=== PATIENT | male | born 1935 | race Caucasian/White ===

== ENCOUNTER 2016-11-12 18:45 | Inpatient (IN) | payer MEDICARE, BC ==
[~2016-11-12] VITALS: Ht 172.7 cm; Wt 78.0 kg
[~2016-11-12 18:45] MED LIST: ASPI1TAB69 PO; ATELTAB PO; ESOM1CAP16 PO; LEXA20TA PO; MOEX15TA PO; TOPR25TA PO
[2016-11-12 19:06] VITALS: BP 171/85; PULSE 61; RESP 18; TEMP 98.1; O2SAT 98
[2016-11-12] MEDS ORDERED: MORPHINE SULFATE 4 MG/ML INJ IV PUSH ONE (19:15)
[2016-11-12] MEDS ORDERED: ONDANSETRON HCL 4 MG/2 ML VIAL IVP ONE (19:15)
--- NOTE | 2016-11-12 19:29 | PD ---
HPI Chief Complaint: Fall Time Seen by Provider: 18:52 Travel History International Travel<30 days: No Contact w/Intl Traveler<30days: No Traveled to known affect area: No History of Present Illness HPI 81-year-old male that presents to the ED for evaluation of fall from a horse. Patient reports that he was riding his horse today and he fell onto his left side. Patient did suffer head injury with history of he lost consciousness. Patient was by himself and he was able to get himself up and get back into the floor so he can get to an area where he called Marvin 1. Per patient he was able to ambulate but he has severe pain. He does have a history of pelvic fractures and states that he is somewhat feels similar. He does not appear to have any shortening of the left hip. Patient denies taking any blood thinners. No chest pain or abdominal pain. No urinary or bowel movement issues. No numbness, tilling, weakness. Per patient his pain currently is 4 out of 10 but he was given 4 mg of morphine. This does feel nauseous and this started after getting the morphine. Last ate lunch. Patient follows with Dr. Kay for orthopedic surgery. [facility] Past Medical History Anxiety: No Depression: Yes Cancer: No Cardiovascular Problems: Yes (cad) Chemotherapy: No Diabetes: No Endocrine: No Genitourinary: Yes (hx of prostate surgery hx of PENILE IMPLANT) Hepatitis: No Hiatal Hernia: No Immune Disorder: No Musculoskeletal: Yes (Arthritis) Neurologic: Yes (right leg experiences some tingling and numbness) Psychiatric: Yes (depression) Reproductive: No Respiratory: Yes (hx of pneumonia) Radiation Therapy: No Sickle Cell Disease: No Thyroid Disease: No Past Surgical History Abdominal Surgery: Yes (lap margaux) AICD: Yes Arteriovenous Shunt: No Cardiac Surgery: Yes (quadruple by pass) Eye Surgery: Yes (cataract removal both eyes) Genitourinary Surgery: Yes (prostate surgery) Insulin Pump: No Joint Replacement: Yes (right knee replaced) Oral Surgery: Yes (t and a) Pacemaker: No Thoracic Surgery: Yes (left lung puncture repair) Social History Tobacco Use: No Substance Use: No Allergies-Medications (Allergen,Severity, Reaction): Coded Allergies: doxycycline (Unverified Allergy, Severe, 11/12/16) tingling throughout the body minocycline (Unverified Allergy, Severe, 11/12/16) tingling throughout the body tigecycline (Unverified Allergy, Severe, 11/12/16) tingling throughout the body Reported Meds & Prescriptions Reported Meds & Active Scripts Active Reported Aspirin Low Dose (Aspirin) 81 Mg Chew 81 Mg CHEW DAILY Esomeprazole DR 40 Mg Capdr 40 Mg PO DAILY Atelvia (Risedronate) 35 Mg Tabdr 35 Mg PO Q7D Lexapro (Escitalopram Oxalate) 20 Mg Tab 20 Mg PO DAILY Toprol XL (Metoprolol Succinate) 25 Mg Tab 25 Mg PO BID Moexipril (Moexipril HCl) 15 Mg Tab 15 Mg PO DAILY Review of Systems Except as stated in HPI: all other systems reviewed are Neg Physical Exam Narrative GENERAL: SKIN: Warm and dry. Patient has a bruise to the back of the head. HEAD: Atraumatic. Normocephalic. EYES: Pupils equal and round. No scleral icterus. No injection or drainage. ENT: No nasal bleeding or discharge. Mucous membranes pink and moist. Tongue is midline. No uvula deviation. NECK: Trachea midline. No JVD. CARDIOVASCULAR: Regular rate and rhythm. No murmurs, S3, S4. RESPIRATORY: No accessory muscle use. Clear to auscultation. Breath sounds equal bilaterally. GASTROINTESTINAL: Abdomen soft, non-tender, nondistended. Hepatic and splenic margins not palpable. MUSCULOSKELETAL: Extremities without clubbing, cyanosis, or edema. No obvious deformities. Full range of motion of the upper and lower extremities bilaterally. 2+ pulses bilaterally. Severe pain with any range of motion of the left hip but able to move it. No lumbar, thoracic, cervical spine tenderness to palpation. Sensation intact. NEUROLOGICAL: Awake and alert. No obvious cranial nerve deficits. Motor grossly within normal limits. Five out of 5 muscle strength in the arms and legs. Normal speech. PSYCHIATRIC: Appropriate mood and affect; insight and judgment normal. Data Data Last Documented VS Vital Signs Date Time Temp Pulse Resp B/P (MAP) Pulse Ox O2 Delivery O2 Flow Rate FiO2 11/12/16 20:45 59 18 188/88 (121) 100 11/12/16 19:06 98.1 Orders Orders Complete Blood Count With Diff (11/12/16 18:57) Basic Metabolic Panel (Bmp) (11/12/16 18:57) Prothrombin Time / Inr (Pt) (11/12/16 18:57) Act Partial Throm Time (Ptt) (11/12/16 18:57) Ct Brain W/O Iv Contrast(Rout) (11/12/16 18:57) Iv Access Insert/Monitor (11/12/16 18:57) Hip, Uni(Ap&Lat) W Ap Pelvis (11/12/16 18:57) Ice/Cold Pack (11/12/16 18:57) Ct Cerv Spine W/O Contrast (11/12/16 18:57) Morphine Inj (Morphine Inj) (11/12/16 19:15) Ondansetron Inj (Zofran Inj) (11/12/16 19:15) Chest, Single Ap (11/12/16 ) Ct Hip W/O Contrast (11/12/16 ) Ondansetron Inj (Zofran Inj) (11/12/16 20:00) Ct Abd/Pel W Iv Contrast(Rout) (11/12/16 20:11) Iv Access Insert/Monitor (11/12/16 20:11) Ecg Monitoring (11/12/16 20:11) Oximetry (11/12/16 20:11) Sodium Chloride 0.9% Flush (Ns Flush) (11/12/16 20:15) Iohexol 350 Inj (Omnipaque 350 Inj) (11/12/16 21:32) Admit Order (Ed Use Only) (11/12/16 22:26) Vital Signs (Adult) AMRIT.Q4H (11/12/16 22:28) Sodium Chloride 0.9% Flush (Ns Flush) (11/12/16 22:30) Sodium Chloride 0.9% Flush (Ns Flush) (11/13/16 09:00) Labs Laboratory Tests Test 11/12/16 19:45 White Blood Count 11.6 TH/MM3 Red Blood Count 4.84 MIL/MM3 Hemoglobin 14.5 GM/DL Hematocrit 43.4 % Mean Corpuscular Volume 89.6 FL Mean Corpuscular Hemoglobin 29.9 PG Mean Corpuscular Hemoglobin Concent 33.4 % Red Cell Distribution Width 14.6 % Platelet Count 128 TH/MM3 Mean Platelet Volume 11.2 FL Neutrophils (%) (Auto) 80.2 % Lymphocytes (%) (Auto) 8.3 % Monocytes (%) (Auto) 10.5 % Eosinophils (%) (Auto) 0.8 % Basophils (%) (Auto) 0.2 % Neutrophils # (Auto) 9.3 TH/MM3 Lymphocytes # (Auto) 1.0 TH/MM3 Monocytes # (Auto) 1.2 TH/MM3 Eosinophils # (Auto) 0.1 TH/MM3 Basophils # (Auto) 0.0 TH/MM3 CBC Comment DIFF FINAL Differential Comment Prothrombin Time 11.2 SEC Prothromb Time International Ratio 1.0 RATIO Activated Partial Thromboplast Time 24.0 SEC Blood Urea Nitrogen 23 MG/DL Creatinine 0.88 MG/DL Random Glucose 114 MG/DL Calcium Level 8.8 MG/DL Sodium Level 140 MEQ/L Potassium Level 4.0 MEQ/L Chloride Level 105 MEQ/L Carbon Dioxide Level 27.5 MEQ/L Anion Gap 8 MEQ/L Estimat Glomerular Filtration Rate 83 ML/MIN MDM Medical Decision Making Medical Screen Exam Complete: Yes Emergency Medical Condition: Yes Medical Record Reviewed: Yes Interpretation(s) Last Impressions Abdomen/Pelvis CT 11/12/162010 Signed Impressions: Service Date/Time: Saturday, November 12, 2016 21:03 - CONCLUSION: 1. Atherosclerosis. 2. Fat-containing umbilical hernia and a right diaphragmatic hernia. 3. Acute sacral fracture, and remote lumbar spine transverse process fractures and rib fractures. Bjorn Kim MD Hip and Pelvis X-Ray 11/12/161856 Signed Impressions: Service Date/Time: Saturday, November 12, 2016 19:32 - CONCLUSION: No acute disease. Bjorn Kim MD Head CT 11/12/161856 Signed Impressions: Service Date/Time: Saturday, November 12, 2016 19:13 - CONCLUSION: No acute disease. Bjorn Kim MD Cervical Spine CT 11/12/161856 Signed Impressions: Service Date/Time: Saturday, November 12, 2016 19:14 - CONCLUSION: 1. Severe degenerative changes and postsurgical changes are noted without evidence for acute fracture or listhesis. Bjorn Kim MD Lower Extremity CT 11/12/16 Signed Impressions: Service Date/Time: Saturday, November 12, 2016 21:03 - CONCLUSION: 1. Left sacral alar fracture. Bjorn Kim MD Chest X-Ray 10/7/17 0000 Signed Impressions: Service Date/Time: Saturday, November 12, 2016 20:20 - CONCLUSION: Basilar atelectasis and the possibility of right sided pneumoperitoneum is difficult to exclude. CT abdomen and pelvis recommended. Bjorn Kim MD CBC & BMP Diagram 11/12/16 19:45 Calcium Level 8.8 Differential Diagnosis Fracture versus bruise versus contusion versus head injury versus LOC versus syncope Narrative Course 81-year-old male that presents to the ED for evaluation of fall from a horse. Patient was properly examined and was found to have signs and symptoms consistent with appears to be possible fractures. X-rays were ordered. Labs and imaging showed sacral fracture. Otherwise unremarkable. Patient still of pain whenever he stands up. Recommendations for admission for further evaluation likely PT as well as possible orbital consult. Likely nonsurgical. Patient and family agree with this plan. Case was discussed with the residents who agreed to admission to their team. Diagnosis Primary Impression: Sacral fracture, closed Qualified Codes: S32.10XA - Unspecified fracture of sacrum, initial encounter for closed fracture Additional Impression: Head injury Qualified Codes: S09.90XA - Unspecified injury of head, initial encounter Admitting Information Admitting Physician Requests: Observation Bong Gaines Nov 12, 2016 19:29
--- NOTE | 2016-11-12 19:45 | RADRPT ---
EXAM DATE/TIME: 11/12/2016 19:13 [facility] COMPARISON: No previous studies available for comparison. INDICATIONS : Trauma, patient fell off horse and hit head. RADIATION DOSE: 56.35 CTDIvol (mGy) MEDICAL HISTORY : Hypertension. SURGICAL HISTORY : Fusion, cervical. ENCOUNTER: Initial ACUITY: 1 day PAIN SCALE: 3/10 LOCATION: cranial TECHNIQUE: Multiple contiguous axial images were obtained of the head. Using automated exposure control and adj ustment of the mA and/or kV according to patient size, radiation dose was kept as low as reasonably a chievable to obtain optimal diagnostic quality images. DICOM format image data is available electro nically for review and comparison. FINDINGS: There is atrophy and mild periventricular white matter disease. No hemorrhage, infarct, or mass. Vasc ular calcifications are. No fractures are seen. CONCLUSION: No acute disease. Bjorn Kim MD on November 12, 2016 at 19:43 Board Certified Radiologist. This report was verified electronically.
--- NOTE | 2016-11-12 19:48 | RADRPT ---
EXAM DATE/TIME: 11/12/2016 19:14 [facility] COMPARISON: No previous studies available for comparison. INDICATIONS : Trauma, patient fell off horse and hit head. RADIATION DOSE: 37.84 CTDIvol (mGy) MEDICAL HISTORY : Hypertension. SURGICAL HISTORY : Fusion, cervical. ENCOUNTER: Initial ACUITY: 1 day PAIN SCALE: 0/10 LOCATION: neck TECHNIQUE: Volumetric scanning of the cervical spine was performed. Multiplanar reconstructions in the sagittal, coronal and oblique axial planes were performed. Using automated exposure control and adjustment o f the mA and/or kV according to patient size, radiation dose was kept as low as reasonably achievable to obtain optimal diagnostic quality images. DICOM format image data is available electronically f or review and comparison. FINDINGS: The patient has had previous anterior cervical discectomy and intervertebral fusion at C5-C7. There i s severe multilevel degenerative disc disease and osteophytosis. Multilevel facet hypertrophic change s are noted. There are no compression deformities. Prevertebral soft tissues are unremarkable. There is a well-corticated ossicle inferior to the anterior arch of C1. Bilateral carotid artery calcificat ions are noted. There is severe canal stenosis at C3-4, moderate to severe stenosis at C4-5, moderate stenosis at C5-6, severe stenosis at C6-7. CONCLUSION: 1. Severe degenerative changes and postsurgical changes are noted without evidence for acute fracture or listhesis. Bjorn Kim MD on November 12, 2016 at 19:43 Board Certified Radiologist. This report was verified electronically.
--- NOTE | 2016-11-12 19:53 | RADRPT ---
EXAM DATE/TIME: 11/12/2016 19:32 [facility] COMPARISON: No previous studies available for comparison. INDICATIONS : Fell off horse today. MEDICAL HISTORY : None. SURGICAL HISTORY : L4 L5 herniated disc repair. ENCOUNTER: Initial ACUITY: 1 day PAIN SCORE: 3/10 LOCATION: Left hip FINDINGS: Bone density is decreased. Penile implantation hardware overlies the scrotum. Femoral artery and jonas c artery calcifications are noted. The left hip joint is unremarkable. No obvious fractures. CONCLUSION: No acute disease. Bjorn Kim MD on November 12, 2016 at 19:51 Board Certified Radiologist. This report was verified electronically.
[2016-11-12] MEDS ORDERED: ONDANSETRON HCL 4 MG/2 ML VIAL IV PUSH ONE (20:00)
[2016-11-12] MEDS ORDERED: ASPI81CH37 CHEW (20:12)
[2016-11-12] MEDS ORDERED: SODIUM CHLORIDE 0.9% FLUSH 10 ML FLUSH IV FLUSH PRN ×2 (20:15→22:30)
[2016-11-12 20:23] LABS: AUTOMATED NEUTROPHIL # 9.3 TH/MM3 (1.8-7.7); BASOPHIL % 0.2 % (0.0-2.0); EOSINOPHIL # 0.1 TH/MM3 (0-0.4); EOSINOPHIL % 0.8 % (0.0-4.0); HEMATOCRIT 43.4 % (39.0-51.0); HEMO FLAGS DIFF FINAL; LYMPH % 8.3 % (9.0-44.0); MEAN CELL VOLUME 89.6 FL (80.0-100.0); MEAN CORPUSCULAR HEMOGLOBIN 29.9 PG (27.0-34.0); MEAN CORPUSCULAR HGB CONC 33.4 % (32.0-36.0); MONO % 10.5 % (0.0-8.0); NEUT % 80.2 % (16.0-70.0); PLATELET COUNT 128 TH/MM3 (150-450); RED BLOOD COUNT 4.84 MIL/MM3 (4.50-5.90); RED CELL DISTRIBUTION WIDTH 14.6 % (11.6-17.2); WHITE BLOOD COUNT 11.6 TH/MM3 (4.0-11.0)
--- NOTE | 2016-11-12 20:28 | RADRPT ---
EXAM DATE/TIME: 11/12/2016 20:20 [facility] COMPARISON: No previous studies available for comparison. INDICATIONS : Chest pain. MEDICAL HISTORY : Hypertension. SURGICAL HISTORY : CABG. L4 L5 herniated disc repair ENCOUNTER: Initial ACUITY: 1 day PAIN SCORE: 9/10 LOCATION: Bilateral chest FINDINGS: Median sternotomy wires and cardiomegaly. Mediastinal clips are noted. There are multiple left sided rib deformities having the appearance of remote fractures. There is atelectasis at the right lung bas e. There is a lucency at the level of the right hemidiaphragm. This may be related to artifact from t he basilar atelectasis, however the possibility of pneumoperitoneum is difficult to exclude. A CT sca n of the abdomen and pelvis is pending. This is recommended to exclude free air. CONCLUSION: Basilar atelectasis and the possibility of right sided pneumoperitoneum is difficult to exclude. CT a bdomen and pelvis recommended. Bjorn Kim MD on November 12, 2016 at 20:26 Board Certified Radiologist. This report was verified electronically.
[2016-11-12 20:34] LABS: PROTHROMBIN TIME - PATIENT 11.2 SEC (9.8-11.6)
[2016-11-12 20:39] LABS: BICARBONATE 27.5 MEQ/L (21.0-32.0)
[2016-11-12 20:45] VITALS: BP 188/88; PULSE 59; RESP 18; O2SAT 100
[2016-11-12] MEDS ORDERED: IOHEXOL 350 MG/ML 10 ML VIAL (for RAD DIAG) IVCONTRAST ONE (21:32)
--- NOTE | 2016-11-12 21:42 | RADRPT ---
EXAM DATE/TIME: 11/12/2016 21:03 [facility] COMPARISON: No previous studies available for comparison. INDICATIONS : Epigastric abdominal pain and vomiting post fall. IV CONTRAST: 100 cc Omnipaque 350 (iohexol) IV ORAL CONTRAST: No oral contrast ingested. RADIATION DOSE: 7.24 CTDIvol (mGy) MEDICAL HISTORY : Hypertension. Cardiovascular disease SURGICAL HISTORY : Cholecystectomy. Penile implant. Prostate surgery. CABG. L4-L5 surgery. ENCOUNTER: Initial ACUITY: 1 day PAIN SCALE: 6/10 LOCATION: Epigastric. TECHNIQUE: Volumetric scanning of the abdomen and pelvis was performed. Using automated exposure control and ad justment of the mA and/or kV according to patient size, radiation dose was kept as low as reasonably achievable to obtain optimal diagnostic quality images. DICOM format image data is available electro nically for review and comparison. FINDINGS: There is a small fat containing diaphragmatic hernia at the right lung base, and basilar atelectasis versus scarring. There are remote left-sided rib fractures and a subacute fracture of the right 10th posterior rib. Degenerative changes of the spine are seen. Remote right 11th posterior rib fracture, and remote L1 transverse process fractures and right L2 transverse process fracture. The patient has had previous posterior interspinous process fusion at L4-5. There is a fracture through the sacrum at the S1 level on the left. Penile implantation device is present. There are no pleural or pericardial effusions. Cholecystectomy clips are noted. Liver, spleen, pancreas, adrenal glands, right kidney un remarkable. There is a left renal parapelvic cyst measuring 5.2 cm. Atherosclerotic calcification of the aorta and iliac vessels identified. Urinary bladder unremarkable. No evidence of bowel obstructio n. No free fluid or free air. Fat-containing umbilical hernia. CONCLUSION: 1. Atherosclerosis. 2. Fat-containing umbilical hernia and a right diaphragmatic hernia. 3. Acute sacral fracture, and remote lumbar spine transverse process fractures and rib fractures. Bjorn Kim MD on November 12, 2016 at 21:36 Board Certified Radiologist. This report was verified electronically.
--- NOTE | 2016-11-12 21:43 | RADRPT ---
EXAM DATE/TIME: 11/12/2016 21:03 [facility] COMPARISON: No previous studies available for comparison. INDICATIONS : Left hip pain post fall. RADIATION DOSE: ; Reconstructed from previous dataset, no dose MEDICAL HISTORY : None SURGICAL HISTORY : Prostate surgery. Penile implant. ENCOUNTER: Initial ACUITY: 1 day PAIN SCALE: 7/10 LOCATION: Left hip. TECHNIQUE: Volumetric scanning of the hip was performed. Using automated exposure control and adjustment of the mA and/or kV according to patient size, radiation dose was kept as low as reasonably achievable to o btain optimal diagnostic quality images. DICOM format image data is available electronically for rev iew and comparison. FINDINGS: There is a nondisplaced fracture through the sacrum to the left of midline at the S1 level. No other fractures are seen. Left hip intact. 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 CONCLUSION: 1. Left sacral alar fracture. Bjorn Kim MD on November 12, 2016 at 21:40 Board Certified Radiologist. This report was verified electronically.
--- NOTE | 2016-11-12 22:57 | HHI.HP ---
[facility] Service Family Medicine Primary Care Physician Francisco Tovar M.D. Admission Diagnosis acute sacral fracture, inability to ambulate due to pain Diagnoses: International Travel<30 Days: No Contact w/Intl Traveler<30days: No Known Affected Area: No History of Present Illness Patient is an 81-year-old man with a history of ROSA, HTN, quadruple bypass who presented to the emergency department with a left sacral fracture after falling off his horse. 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 His horse saw a branch, reared back and spun around and took off , and the pt fell off the horse. He doesn't remember how he fell. He hit his head. He doesn't think he lost consciousness. He got up and felt dizzy and nauseous. He sat down next to a tree in the shade, then got back on his horse and rode home. He took a shower, watched TV, then 1-2 hours later, decided to go to hospital. He tried to use walker (he normally walks without assistive device) to walk. However, he found it extremely painful to walk around his left butt/hip, medial to hip. He reports that he thought he had broken something. He currently denies headache, visual changes, neurological deficits. (Seven Bonds MD R2) Review of Systems Constitutional: DENIES: Diaphoretic episodes, Fever, Weight loss, Chills Ears, nose, mouth, throat: COMPLAINS OF: Hearing loss (chronic ) Respiratory: DENIES: Cough, Shortness of breath Cardiovascular: COMPLAINS OF: Lower Extremity Edema, DENIES: Chest pain, Palpitations, Syncope, Dyspnea on Exertion, Orthopnea Gastrointestinal: COMPLAINS OF: Abdominal pain (slight), DENIES: Black stools, Bloody stools, Constipation, Diarrhea, Nausea, Vomiting Genitourinary: DENIES: Hematuria, Dysuria Musculoskeletal: COMPLAINS OF: Joint pain (arthritis), Back pain (occasional with exercise), Neck pain (occasional with exercise) Integumentary: DENIES: Pruritus, Rash Neurologic: COMPLAINS OF: Paresthesias (with gripping), DENIES: Headache, Localized weakness Psychiatric: COMPLAINS OF: Depression, DENIES: Anxiety, Mood changes (Seven Bonds MD R2) Past Family Social History Past Medical History ROSA HTN CAD depression Patient gets shots in his back about every 6 months, so he can ski. Past Surgical History quadruple bypass back and neck surgery knee replacement Cholecystectomy prostate surgery penile implant thumb re-attached chest tube for hemothorax Reported Medications Reported Meds & Active Scripts Active Reported Aspirin Low Dose (Aspirin) 81 Mg Chew 81 Mg CHEW DAILY Esomeprazole DR 40 Mg Capdr 40 Mg PO DAILY Atelvia (Risedronate) 35 Mg Tabdr 35 Mg PO Q7D Lexapro (Escitalopram Oxalate) 20 Mg Tab 20 Mg PO DAILY Toprol XL (Metoprolol Succinate) 25 Mg Tab 25 Mg PO BID Moexipril (Moexipril HCl) 15 Mg Tab 15 Mg PO DAILY (Seven Bonds MD R2) Allergies: Coded Allergies: doxycycline (Unverified Allergy, Severe, 11/12/16) tingling throughout the body minocycline (Unverified Allergy, Severe, 11/12/16) tingling throughout the body tigecycline (Unverified Allergy, Severe, 11/12/16) tingling throughout the body Active Ordered Medications Current Medications Medications (Trade) Dose Ordered Sig/Jose Eduardo Route Start Time Stop Time Status Last Admin (NS Flush) 2 ml UNSCH PRN IV FLUSH 11/12/16 22:30 (NS Flush) 2 ml BID IV FLUSH 11/13/16 09:00 (Tylenol) 650 mg Q4H PRN PO 11/12/16 23:30 (Zofran Inj) 4 mg Q6H PRN IVP 11/12/16 23:30 (Lovenox Inj) 40 mg Q24H SQ 11/13/16 00:00 (Sylvia-Colace) 1 tab BID PO 11/13/16 09:00 (Milk Of Magnesia Liq) 30 ml Q12H PRN PO 11/12/16 23:30 (Senokot) 17.2 mg Q12H PRN PO 11/12/16 23:30 (Dulcolax Supp) 10 mg DAILY PRN RECTAL 11/12/16 23:30 (Lactulose Liq) 30 ml DAILY PRN PO 11/12/16 23:30 (Morphine Inj) 1 mg Q3H PRN IV PUSH 11/12/16 23:30 (Morphine Inj) 2 mg Q3H PRN IV PUSH 11/12/16 23:45 (Morphine Inj) 2 mg Q3H PRN IV PUSH 11/12/16 23:45 Acetaminophen 100 ml @ 400 mls/hr Q6H IV 11/12/16 23:30 11/13/16 17:44 (Narcan Inj) 0.4 mg UNSCH PRN IV PUSH 11/12/16 23:30 (Toradol Inj) 30 mg Q6HR IV PUSH 11/13/16 00:00 11/17/16 18:01 (Aspirin Chew) 81 mg DAILY CHEW 11/13/16 09:00 (Lexapro) 20 mg DAILY PO 11/13/16 09:00 (Toprol Xl) 25 mg BID PO 11/13/16 00:15 Non-Formulary Medication 40 mg DAILY PO 11/13/16 09:00 UNV Non-Formulary Medication 15 mg DAILY PO 11/13/16 09:00 UNV Non-Formulary Medication 35 mg Q7D PO 11/13/16 00:15 UNV Family History sister of [place] dad [place] at 87 bro combat Social History Patient lives with his in a house. They live independently with no outside help. Patient denies any tobacco, ethanol, drug use since 1984-07. No caffeine except chocolate because of a GI complaint many years ago. He skis, rides his bike, rides is horse, walks unassisted. (Seven Bonds MD R2) Physical Exam Vital Signs Vital Signs Date Time Temp Pulse Resp B/P (MAP) Pulse Ox O2 Delivery O2 Flow Rate FiO2 11/12/16 20:45 59 18 188/88 (121) 100 11/12/16 20:03 60 18 100 11/12/16 19:06 98.1 61 18 171/85 (113) 98 Physical Exam GENERAL: This is a well-nourished, well-developed elderly male patient , in no apparent distress. SKIN: + Ecchymosis and abrasion of scalp. Otherwise, Cool and dry. HEAD: + traumatic as above. Normocephalic. EYES: Arcus senilis present bilaterally. Pinpoint Pupils equal round and reactive. Extraocular motions intact. No scleral icterus. No injection or drainage. ENT: Nose without bleeding, purulent drainage or septal hematoma. Throat without erythema, tonsillar hypertrophy or exudate. Uvula midline. Airway patent. NECK: Trachea midline. No JVD or lymphadenopathy. Supple, nontender, no meningeal signs. CARDIOVASCULAR: Regular rate and rhythm without murmurs, gallops, or rubs. RESPIRATORY: Clear to auscultation. Breath sounds equal bilaterally. No wheezes , rales, or rhonchi. GASTROINTESTINAL: Abdomen soft, non-tender, nondistended. No hepato-splenomegaly , or palpable masses. No guarding. MUSCULOSKELETAL: Extremities without clubbing, cyanosis, or edema. No joint tenderness, effusion, or edema noted. No calf tenderness. NEUROLOGICAL: Awake and alert. Cranial nerves II through XII grossly intact. Motor and sensory grossly within normal limits. Normal speech. Laboratory Laboratory Tests Test 11/12/16 19:45 White Blood Count 11.6 Red Blood Count 4.84 Hemoglobin 14.5 Hematocrit 43.4 Mean Corpuscular Volume 89.6 Mean Corpuscular Hemoglobin 29.9 Mean Corpuscular Hemoglobin Concent 33.4 Red Cell Distribution Width 14.6 Platelet Count 128 Mean Platelet Volume 11.2 Neutrophils (%) (Auto) 80.2 Lymphocytes (%) (Auto) 8.3 Monocytes (%) (Auto) 10.5 Eosinophils (%) (Auto) 0.8 Basophils (%) (Auto) 0.2 Neutrophils # (Auto) 9.3 Lymphocytes # (Auto) 1.0 Monocytes # (Auto) 1.2 Eosinophils # (Auto) 0.1 Basophils # (Auto) 0.0 CBC Comment DIFF FINAL Differential Comment Prothrombin Time 11.2 Prothromb Time International Ratio 1.0 Activated Partial Thromboplast Time 24.0 Blood Urea Nitrogen 23 Creatinine 0.88 Random Glucose 114 Calcium Level 8.8 Sodium Level 140 Potassium Level 4.0 Chloride Level 105 Carbon Dioxide Level 27.5 Anion Gap 8 Estimat Glomerular Filtration Rate 83 (Seven Bonds MD R2) Result Diagram: 11/12/16194411/12/161944 Imaging Last Impressions Abdomen/Pelvis CT 11/12/162010 Signed Impressions: Service Date/Time: Saturday, November 12, 2016 21:03 - CONCLUSION: 1. Atherosclerosis. 2. Fat-containing umbilical hernia and a right diaphragmatic hernia. 3. Acute sacral fracture, and remote lumbar spine transverse process fractures and rib fractures. Bjorn Kim MD Hip and Pelvis X-Ray 11/12/161856 Signed Impressions: Service Date/Time: Saturday, November 12, 2016 19:32 - CONCLUSION: No acute disease. Bjorn Kim MD Head CT 11/12/161856 Signed Impressions: Service Date/Time: Saturday, November 12, 2016 19:13 - CONCLUSION: No acute disease. Bjorn Kim MD Cervical Spine CT 11/12/161856 Signed Impressions: Service Date/Time: Saturday, November 12, 2016 19:14 - CONCLUSION: 1. Severe degenerative changes and postsurgical changes are noted without evidence for acute fracture or listhesis. Bjorn Kim MD Lower Extremity CT 11/12/16 0000 Signed Impressions: Service Date/Time: Saturday, November 12, 2016 21:03 - CONCLUSION: 1. Left sacral alar fracture. Bjorn Kim MD Chest X-Ray 11/12/16 Signed Impressions: Service Date/Time: Saturday, November 12, 2016 20:20 - CONCLUSION: Basilar atelectasis and the possibility of right sided pneumoperitoneum is difficult to exclude. CT abdomen and pelvis recommended. Bjorn Kim MD Course In the emergency department, patient had CT cervical spine without IV contrast, ice/cold pack, hip x-ray, CT brain without IV contrast, a PTT, PT/INR, BMP, CBC , Zofran 4 mg IV push, morphine 4 mg IV push, CT hip without IV contrast, chest x-ray, Zofran, CT abdomen/pelvis with IV contrast, admission order. (Seven Bonds MD R2) Caprini VTE Risk Assessment Caprini VTE Risk Assessment: Mod/High Risk (score >= 2) Caprini Risk Assessment Model Point Value = 1 Point Value = 2 Point Value = 3 Point Value = 5 Age 41-60 Minor surgery BMI > 25 kg/m2 Swollen legs Varicose veins or History of unexplained or recurrent spontaneous Oral contraceptives or hormone replacement Sepsis (< 1 month) Serious lung disease, including pneumonia (< 1 month) Abnormal pulmonary function Acute myocardial infarction Congestive heart failure (< 1 month) History of inflammatory bowel disease Medical patient at bed rest Age 61-74 Arthroscopic surgery Major open surgery (> 45 min) Laparoscopic surgery (> 45 min) Malignancy Confined to bed (> 72 hours) Immobilizing plaster cast Central venous access Age >= 75 History of VTE Family history of VTE Factor V Leiden Prothrombin [id number] Lupus anticoagulant Anticardiolipin antibodies Elevated serum homocysteine Heparin-induced thrombocytopenia Other congenital or acquired thrombophilia Stroke (< 1 month) Elective arthroplasty Hip, pelvis, or leg fracture Acute spinal cord injury (< 1 month) Prophylaxis Regimen Total Risk Factor Score Risk Level Prophylaxis Regimen 0-1 Low Early ambulation 2 Moderate Order ONE of the following: *Sequential Compression Device (SCD) *Heparin 5000 units SQ BID 3-4 Higher Order ONE of the following medications: *Heparin 5000 units SQ TID *Enoxaparin/Lovenox 40 mg SQ daily (WT < 150 kg, CrCl > 30 mL/min) *Enoxaparin/Lovenox 30 mg SQ daily (WT < 150 kg, CrCl > 10-29 mL/min) *Enoxaparin/Lovenox 30 mg SQ BID (WT < 150 kg, CrCl > 30 mL/min) AND/OR *Sequential Compression Device (SCD) 5 or more Highest Order ONE of the following medications: *Heparin 5000 units SQ TID (Preferred with Epidurals) *Enoxaparin/Lovenox 40 mg SQ daily (WT < 150 kg, CrCl > 30 mL/min) *Enoxaparin/Lovenox 30 mg SQ daily (WT < 150 kg, CrCl > 10-29 mL/min) *Enoxaparin/Lovenox 30 mg SQ BID (WT < 150 kg, CrCl > 30 mL/min) AND *Sequential Compression Device (SCD) (Seven Bonds MD R2) Assessment and Plan Assessment and Plan Patient is an 81-year-old man with a history of ROSA, HTN, quadruple bypass who presented to the emergency department with a left sacral fracture after falling off his horse. Code Status Full code (Seven Bonds MD R2) Attending Attestation THIS CASE WAS DISCUSSED WITH THE RESIDENT PHYSICIANS. I HAVE REVIEWED THE RECORD AND AGREE WITH THE ABOVE NOTE AND PLAN OF CARE WAS DISCUSSED. I HAVE AUTHORIZED THE ORDER FOR ADMISSION TO AN IN-PATIENT STATUS. (Kimo Thornton MD) Problem List: (1) Sacral fracture, closed ICD Codes: S32.10XA - Unspecified fracture of sacrum, initial encounter for closed fracture Status: Acute Plan: -Pain control with scheduled acetaminophen, Toradol. Morphine for pain 1- 10 and breakthrough pain -Physical therapy with early mobilization -Calcium and vitamin D supplementation (2) CAD (coronary artery disease) ICD Codes: I25.10 - Atherosclerotic heart disease of [place] coronary artery without angina pectoris Plan: -Continue home medication of low-dose aspirin (3) Osteoporosis ICD Codes: M81.0 - Age-related osteoporosis without current pathological fracture Plan: -Continue home medication of bisphosphonate -Calcium and vitamin D supplementation (4) HTN (hypertension) ICD Codes: I10 - Essential (primary) hypertension Plan: -Continue medications of metoprolol and ACEi (5) GERD (gastroesophageal reflux disease) ICD Codes: K21.9 - Gastro-esophageal reflux disease without esophagitis Plan: -Continue home medication of PPI (6) ROSA (obstructive sleep apnea) ICD Codes: G47.33 - Obstructive sleep apnea (adult) (pediatric) Plan: -Continue CPAP at night while sleeping (7) Depression ICD Codes: F32.9 - Major depressive disorder, single episode, unspecified Plan: -Continue home medication of Lexapro (8) No contraindication to deep vein thrombosis (DVT) prophylaxis ICD Codes: Z78.9 - Other specified health status Plan: -Lovenox (9) Nutrition, metabolism, and development symptoms ICD Codes: R63.8 - Other symptoms and signs concerning food and fluid intake Plan: Fluids: Not indicated Electrolytes: Monitor Nutrition: Regular diet (Seven Bonds MD R2) Physician Certification 2 Midnight Certification Type: Admission for Inpatient Services Order for Inpatient Services The services are ordered in accordance with Medicare regulations or non- Medicare payer requirements, as applicable. In the case of services not specified as inpatient-only, they are appropriately provided as inpatient services in accordance with the 2-midnight benchmark. Estimated LOS (days): 2 2 days is the estimated time the patient will need to remain in the hospital, assuming treatment plan goals are met and no additional complications. Post-Hospital Plan: Not yet determined (Seven Bonds MD R2) Problem Qualifiers (1) Sacral fracture, closed: Qualified Codes: S32.10XA - Unspecified fracture of sacrum, initial encounter for closed fracture Seven Bonds MD R2 Nov 12, 2016 22:57 Kimo Thornton MD Nov 13, 2016 11:32
[2016-11-12] MEDS ORDERED: MORPHINE SULFATE 4 MG/ML INJ IV PUSH PRN ×2 (23:30→23:45)
[2016-11-12] MEDS ORDERED: SENNOSIDES 8.6 MG TAB PO PRN (23:30)
[2016-11-12] MEDS ORDERED: ACETAMINOPHEN 325 MG TAB PO PRN (23:30)
[2016-11-12] MEDS ORDERED: LACTULOSE SYRUP 20 GM/30 ML CUP PO PRN (23:30)
[2016-11-12] MEDS ORDERED: BISACODYL 10 MG SUPP RECTAL PRN (23:30)
[2016-11-12] MEDS ORDERED: NALOXONE HCL 0.4 MG/ML AMP IV PUSH PRN ×2 (23:30)
[2016-11-12] MEDS ORDERED: ONDANSETRON HCL 4 MG/2 ML VIAL IVP PRN (23:30)
[2016-11-12] MEDS ORDERED: MAGNESIUM HYDROXIDE SUSP 30 ML CUP PO PRN (23:30)
[2016-11-13] VITALS (8 sets, daily range): BP systolic 119–148; BP diastolic 57–82; PULSE 59–87; RESP 16–18; TEMP 97.1–98.4; O2SAT 95–100
[2016-11-13] MEDS: ENOXAPARIN SODIUM 40 MG/0.4 ML SYRINGE SQ SCH ×2 (00:19→23:51)
[2016-11-13] MEDS: ACETAMINOPHEN 1000 MG/100 ML 100 ML IV SCH ×3 (00:19→11:19)
[2016-11-13] MEDS: METOPROLOL SUCCINATE 25 MG EXTENDED RELEASE TAB PO SCH ×3 (01:52→22:30)
[2016-11-13] MEDS: CALCIUM/VITAMIN D 250 MG/125 U TAB PO SCH ×3 (01:52→22:30)
[2016-11-13] MEDS: MORPHINE SULFATE 4 MG/ML INJ IV PUSH PRN ×2 (02:05→06:05)
[2016-11-13] MEDS: KETOROLAC TROMETHAMINE 30 MG/ML (IVP) VIAL IV PUSH SCH ×2 (05:57)
[2016-11-13 07:49] LABS: AUTOMATED NEUTROPHIL # 4.7 TH/MM3 (1.8-7.7); BASOPHIL % 0.5 % (0.0-2.0); EOSINOPHIL # 0.2 TH/MM3 (0-0.4); EOSINOPHIL % 2.8 % (0.0-4.0); HEMATOCRIT 39.3 % (39.0-51.0); HEMO FLAGS DIFF FINAL; LYMPH % 19.5 % (9.0-44.0); LYMPHOCYTE # 1.5 TH/MM3 (1.0-4.8); MEAN CELL VOLUME 89.6 FL (80.0-100.0); MEAN CORPUSCULAR HEMOGLOBIN 30.2 PG (27.0-34.0); MEAN CORPUSCULAR HGB CONC 33.7 % (32.0-36.0); NEUT % 60.2 % (16.0-70.0); PLATELET COUNT 112 TH/MM3 (150-450); RED BLOOD COUNT 4.38 MIL/MM3 (4.50-5.90); RED CELL DISTRIBUTION WIDTH 14.9 % (11.6-17.2); WHITE BLOOD COUNT 7.8 TH/MM3 (4.0-11.0)
[2016-11-13 08:12] LABS: ANION GAP 6 MEQ/L (5-15); AST (GOT) 97 U/L (15-37); BICARBONATE 28.6 MEQ/L (21.0-32.0); BLOOD UREA NITROGEN 28 MG/DL (7-18); CHLORIDE 105 MEQ/L (98-107); GLOMERULAR FILTRATION RATE 69 ML/MIN (>89); POTASSIUM 3.6 MEQ/L (3.5-5.1); SODIUM (NA) 140 MEQ/L (136-145)
[2016-11-13 08:13] LABS: ALT (GPT) 92 U/L (12-78)
[2016-11-13 08:16] LABS: ALKALINE PHOSPHATASE 86 U/L (45-117); TOTAL BILIRUBIN ADULT 1.7 MG/DL (0.2-1.0)
[2016-11-13] MEDS ORDERED: ACETAMINOPHEN/HYDROcodone 325 MG/5 MG TAB PO PRN (09:30)
[2016-11-13] MEDS: ESCITALOPRAM OXALATE 20 MG TAB PO SCH (09:36)
[2016-11-13] MEDS: ASPIRIN 81 MG CHEW TAB CHEW SCH (09:37)
[2016-11-13] MEDS: DOCUSATE SODIUM 50 MG/SENNA 8.6 MG TAB PO SCH ×2 (09:37→22:30)
[2016-11-13] MEDS: PANTOPRAZOLE SOD 40 MG DELAYED RELEASE TAB PO SCH (09:37)
[2016-11-13] MEDS: LISINOPRIL 20 MG TAB PO SCH (09:38)
[2016-11-13] MEDS: SODIUM CHLORIDE 0.9% FLUSH 10 ML FLUSH IV FLUSH SCH ×2 (09:40→22:31)
[2016-11-13] MEDS: ACETAMINOPHEN/HYDROcodone 325 MG/10 MG TAB PO PRN ×3 (11:19→22:31)
--- NOTE | 2016-11-13 11:32 | HHI.HP ---
[facility] Service Family Medicine Primary Care Physician Francisco Tovar M.D. Admission Diagnosis acute sacral fracture, inability to ambulate due to pain Diagnoses: (1) Sacral fracture, closed (2) CAD (coronary artery disease) (3) Osteoporosis (4) HTN (hypertension) (5) GERD (gastroesophageal reflux disease) (6) ROSA (obstructive sleep apnea) (7) Depression (8) No contraindication to deep vein thrombosis (DVT) prophylaxis (9) Nutrition, metabolism, and development symptoms International Travel<30 Days: No Contact w/Intl Traveler<30days: No Known Affected Area: No History of Present Illness No acute events overnight and patient feels relatively well this morning. He has walker next to the bed but has not been out of bed without assistance. He denies any pain at this time will sitting in bed, he did receive pain medication this morning around 6 AM and states that it decreased his overall pain to 0.5 out of 10. He denies any back pain, denies any hip pain, denies any leg pain at this time. He is tolerating breakfast without issues and would like to go home today. In summary, this is an 81-year-old man with a history of ROSA, HTN, quadruple bypass who presented to the emergency department with a left sacral fracture after falling off his horse. 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 His horse saw a branch, reared back and spun around and took off, and the pt fell off the horse. He doesn't remember how he fell. He hit his head. He doesn't think he lost consciousness. He got up and felt dizzy and nauseous. He sat down next to a tree in the shade, then got back on his horse and rode home. He took a shower, watched TV, then 1-2 hours later, decided to go to hospital. He tried to use walker (he normally walks without assistive device) to walk. However, he found it extremely painful to walk around his left butt/hip, medial to hip. Past Family Social History Past Medical History ROSA HTN CAD depression Patient gets shots in his back about every 6 months, so he can ski. Past Surgical History quadruple bypass back and neck surgery knee replacement Cholecystectomy prostate surgery penile implant thumb re-attached chest tube for hemothorax Allergies: Coded Allergies: doxycycline (Unverified Allergy, Severe, 11/12/16) tingling throughout the body minocycline (Unverified Allergy, Severe, 11/12/16) tingling throughout the body tigecycline (Unverified Allergy, Severe, 11/12/16) tingling throughout the body Family History sister of [place] dad [place] at 87 bro combat Social History Patient lives with his in a house. They live independently with no outside help. Patient denies any tobacco, ethanol, drug use since 1984-07. No caffeine except chocolate because of a GI complaint many years ago. He skis, rides his bike, rides is horse, walks unassisted. Physical Exam Vital Signs Vital Signs Date Time Temp Pulse Resp B/P (MAP) Pulse Ox O2 Delivery O2 Flow Rate FiO2 11/13/16 07:48 97.6 62 16 120/57 (78) 97 11/13/16 04:00 97.1 61 18 121/77 (92) 98 11/13/16 01:44 97.6 87 18 148/79 (102) 97 11/13/16 00:49 95 Nasal Cannula 2.00 11/13/16 00:19 96 Nasal Cannula 2.00 11/13/16 00:19 98.0 63 18 140/82 (101) 100 Room Air 11/12/16 20:45 59 18 188/88 (121) 100 11/12/16 20:03 60 18 100 11/12/16 19:06 98.1 61 18 171/85 (113) 98 Physical Exam GENERAL: This is a well-nourished, well-developed elderly male patient , in no apparent distress. SKIN: + Ecchymosis and abrasion of scalp. Otherwise, Cool and dry. CARDIOVASCULAR: Regular rate and rhythm without murmurs, gallops, or rubs. RESPIRATORY: Clear to auscultation. Breath sounds equal bilaterally. No wheezes , rales, or rhonchi. MUSCULOSKELETAL: Extremities without clubbing, cyanosis, or edema. NEUROLOGICAL: Awake and alert. Laboratory Laboratory Tests Test 11/12/16 19:45 11/13/16 06:35 White Blood Count 11.6 7.8 Red Blood Count 4.84 4.38 Hemoglobin 14.5 13.2 Hematocrit 43.4 39.3 Mean Corpuscular Volume 89.6 89.6 Mean Corpuscular Hemoglobin 29.9 30.2 Mean Corpuscular Hemoglobin Concent 33.4 33.7 Red Cell Distribution Width 14.6 14.9 Platelet Count 128 112 Mean Platelet Volume 11.2 11.5 Neutrophils (%) (Auto) 80.2 60.2 Lymphocytes (%) (Auto) 8.3 19.5 Monocytes (%) (Auto) 10.5 17.0 Eosinophils (%) (Auto) 0.8 2.8 Basophils (%) (Auto) 0.2 0.5 Neutrophils # (Auto) 9.3 4.7 Lymphocytes # (Auto) 1.0 1.5 Monocytes # (Auto) 1.2 1.3 Eosinophils # (Auto) 0.1 0.2 Basophils # (Auto) 0.0 0.0 CBC Comment DIFF FINAL DIFF FINAL Differential Comment Prothrombin Time 11.2 Prothromb Time International Ratio 1.0 Activated Partial Thromboplast Time 24.0 Blood Urea Nitrogen 23 28 Creatinine 0.88 1.03 Random Glucose 114 96 Calcium Level 8.8 8.4 Sodium Level 140 140 Potassium Level 4.0 3.6 Chloride Level 105 105 Carbon Dioxide Level 27.5 28.6 Anion Gap 8 6 Estimat Glomerular Filtration Rate 83 69 Total Protein 5.2 Albumin 3.3 Alkaline Phosphatase 86 Aspartate Amino Transf (AST/SGOT) 97 Alanine Aminotransferase (ALT/SGPT) 92 Total Bilirubin 1.7 Result Diagram: 11/13/1663411/13/16634 Imaging Last Impressions Abdomen/Pelvis CT 11/12/162010 Signed Impressions: Service Date/Time: Saturday, November 12, 2016 21:03 - CONCLUSION: 1. Atherosclerosis. 2. Fat-containing umbilical hernia and a right diaphragmatic hernia. 3. Acute sacral fracture, and remote lumbar spine transverse process fractures and rib fractures. Bjorn Kim MD Hip and Pelvis X-Ray 11/12/161856 Signed Impressions: Service Date/Time: Saturday, November 12, 2016 19:32 - CONCLUSION: No acute disease. Bjorn Kim MD Head CT 11/12/161856 Signed Impressions: Service Date/Time: Saturday, November 12, 2016 19:13 - CONCLUSION: No acute disease. Bjorn Kim MD Cervical Spine CT 11/12/161856 Signed Impressions: Service Date/Time: Saturday, November 12, 2016 19:14 - CONCLUSION: 1. Severe degenerative changes and postsurgical changes are noted without evidence for acute fracture or listhesis. Bjorn Kim MD Lower Extremity CT 11/12/16 0000 Signed Impressions: Service Date/Time: Saturday, November 12, 2016 21:03 - CONCLUSION: 1. Left sacral alar fracture. Bjorn Kim MD Chest X-Ray 11/12/16 Signed Impressions: Service Date/Time: Saturday, November 12, 2016 20:20 - CONCLUSION: Basilar atelectasis and the possibility of right sided pneumoperitoneum is difficult to exclude. CT abdomen and pelvis recommended. Bjorn Kim MD Caprini VTE Risk Assessment Caprini VTE Risk Assessment: Mod/High Risk (score >= 2) Caprini Risk Assessment Model Point Value = 1 Point Value = 2 Point Value = 3 Point Value = 5 Age 41-60 Minor surgery BMI > 25 kg/m2 Swollen legs Varicose veins or History of unexplained or recurrent spontaneous Oral contraceptives or hormone replacement Sepsis (< 1 month) Serious lung disease, including pneumonia (< 1 month) Abnormal pulmonary function Acute myocardial infarction Congestive heart failure (< 1 month) History of inflammatory bowel disease Medical patient at bed rest Age 61-74 Arthroscopic surgery Major open surgery (> 45 min) Laparoscopic surgery (> 45 min) Malignancy Confined to bed (> 72 hours) Immobilizing plaster cast Central venous access Age >= 75 History of VTE Family history of VTE Factor V Leiden Prothrombin 47031A Lupus anticoagulant Anticardiolipin antibodies Elevated serum homocysteine Heparin-induced thrombocytopenia Other congenital or acquired thrombophilia Stroke (< 1 month) Elective arthroplasty Hip, pelvis, or leg fracture Acute spinal cord injury (< 1 month) Prophylaxis Regimen Total Risk Factor Score Risk Level Prophylaxis Regimen 0-1 Low Early ambulation 2 Moderate Order ONE of the following: *Sequential Compression Device (SCD) *Heparin 5000 units SQ BID 3-4 Higher Order ONE of the following medications: *Heparin 5000 units SQ TID *Enoxaparin/Lovenox 40 mg SQ daily (WT < 150 kg, CrCl > 30 mL/min) *Enoxaparin/Lovenox 30 mg SQ daily (WT < 150 kg, CrCl > 10-29 mL/min) *Enoxaparin/Lovenox 30 mg SQ BID (WT < 150 kg, CrCl > 30 mL/min) AND/OR *Sequential Compression Device (SCD) 5 or more Highest Order ONE of the following medications: *Heparin 5000 units SQ TID (Preferred with Epidurals) *Enoxaparin/Lovenox 40 mg SQ daily (WT < 150 kg, CrCl > 30 mL/min) *Enoxaparin/Lovenox 30 mg SQ daily (WT < 150 kg, CrCl > 10-29 mL/min) *Enoxaparin/Lovenox 30 mg SQ BID (WT < 150 kg, CrCl > 30 mL/min) AND *Sequential Compression Device (SCD) Assessment and Plan Assessment and Plan Patient is an 81-year-old man with a history of ROSA, HTN, quadruple bypass who presented to the emergency department with a left sacral fracture after falling off his horse. Problem List: (1) Sacral fracture, closed ICD Codes: S32.10XA - Unspecified fracture of sacrum, initial encounter for closed fracture Status: Acute Plan: Orthopedic surgery consulted to evaluate patient - Likely nonoperative management but would appreciate recommendations on advancing activity and follow-up Physical therapy consult to evaluate patient - Patient would like to be discharged home with home health PT Pain control as below: Aristes 5/325 one tablet every 4 hours as needed for pain scale 1-5 Aristes 10/325 one tablet every 4 hours as needed for pain scale 6-10 Morphine 2 mg as needed for breakthrough pain Calcium and vitamin D supplementation (2) CAD (coronary artery disease) ICD Codes: I25.10 - Atherosclerotic heart disease of [place] coronary artery without angina pectoris Plan: -Continue home medication of low-dose aspirin Continue home metoprolol (3) Osteoporosis ICD Codes: M81.0 - Age-related osteoporosis without current pathological fracture Plan: -Continue home medication of bisphosphonate -Calcium and vitamin D supplementation (4) HTN (hypertension) ICD Codes: I10 - Essential (primary) hypertension Plan: -Continue medications of metoprolol and ACEi (5) GERD (gastroesophageal reflux disease) ICD Codes: K21.9 - Gastro-esophageal reflux disease without esophagitis Plan: -Continue home medication of PPI (6) ROSA (obstructive sleep apnea) ICD Codes: G47.33 - Obstructive sleep apnea (adult) (pediatric) Plan: -Continue CPAP at night while sleeping (7) Depression ICD Codes: F32.9 - Major depressive disorder, single episode, unspecified Plan: -Continue home medication of Lexapro (8) No contraindication to deep vein thrombosis (DVT) prophylaxis ICD Codes: Z78.9 - Other specified health status Plan: -Lovenox (9) Nutrition, metabolism, and development symptoms ICD Codes: R63.8 - Other symptoms and signs concerning food and fluid intake Plan: Fluids: Not indicated Electrolytes: Monitor Nutrition: Regular diet Physician Certification 2 Midnight Certification Type: Admission for Inpatient Services Order for Inpatient Services The services are ordered in accordance with Medicare regulations or non- Medicare payer requirements, as applicable. In the case of services not specified as inpatient-only, they are appropriately provided as inpatient services in accordance with the 2-midnight benchmark. Estimated LOS (days): 2 2 days is the estimated time the patient will need to remain in the hospital, assuming treatment plan goals are met and no additional complications. Post-Hospital Plan: Not yet determined Problem Qualifiers (1) Sacral fracture, closed: Qualified Codes: S32.10XA - Unspecified fracture of sacrum, initial encounter for closed fracture Kimo Thornton MD Nov 13, 2016 11:32
[2016-11-13] MEDS ORDERED: diphenhydrAMINE HCL 50 MG CAP PO PRN (22:45)
[2016-11-13] MEDS ORDERED: diphenhydrAMINE HCL ELIXIR 12.5 MG/5 ML CUP PO ONE (23:00)
[2016-11-14 00:36] VITALS: BP 166/78; PULSE 60; RESP 18; TEMP 98.7; O2SAT 96
[2016-11-14 04:03] VITALS: BP 122/68; PULSE 64; RESP 18; TEMP 98; O2SAT 96
[2016-11-14] MEDS: ACETAMINOPHEN/HYDROcodone 325 MG/10 MG TAB PO PRN ×2 (04:04→09:07)
--- NOTE | 2016-11-14 07:47 | PD.CONS ---
HPI Service Orthopedic Surgeons Consult Requested By Reason for Consult sacral fracture Primary Care Physician Francisco Tovar M.D. Admission Diagnosis acute sacral fracture, inability to ambulate due to pain Diagnoses: Chief Complaint: Pelvis pain History of Present Illness 81yo M s/p fall with complaints of posterior pelvis pain. Denies numbness, tingling, weakness. Denies extremity trauma or head injury. Review of Systems Constitutional: DENIES: Fever Ears, nose, mouth, throat: DENIES: Running Nose Respiratory: DENIES: Cough Cardiovascular: DENIES: Chest pain Gastrointestinal: DENIES: Abdominal pain Genitourinary: DENIES: Urinary frequency Musculoskeletal: COMPLAINS OF: Back pain (pelvis pain), DENIES: Joint pain Integumentary: DENIES: Rash Hematologic/lymphatic: DENIES: Bruising Immunologic/allergic: DENIES: Eczema Neurologic: DENIES: Abnormal gait Psychiatric: DENIES: Anxiety Past Family Social History Allergies: Coded Allergies: doxycycline (Unverified Allergy, Severe, 11/12/16) tingling throughout the body minocycline (Unverified Allergy, Severe, 11/12/16) tingling throughout the body tigecycline (Unverified Allergy, Severe, 11/12/16) tingling throughout the body Active Ordered Medications Current Medications Medications (Trade) Dose Ordered Sig/Jose Eduardo Route Start Time Stop Time Status Last Admin (NS Flush) 2 ml UNSCH PRN IV FLUSH 11/12/16 22:30 (NS Flush) 2 ml BID IV FLUSH 11/13/16 09:00 11/13/16 22:31 (Tylenol) 650 mg Q4H PRN PO 11/12/16 23:30 (Zofran Inj) 4 mg Q6H PRN IVP 11/12/16 23:30 (Lovenox Inj) 40 mg Q24H SQ 11/13/16 00:00 11/13/16 23:51 (Sylvia-Colace) 1 tab BID PO 11/13/16 09:00 11/13/16 22:30 (Milk Of Magnesia Liq) 30 ml Q12H PRN PO 11/12/16 23:30 (Senokot) 17.2 mg Q12H PRN PO 11/12/16 23:30 (Dulcolax Supp) 10 mg DAILY PRN RECTAL 11/12/16 23:30 (Lactulose Liq) 30 ml DAILY PRN PO 11/12/16 23:30 (Morphine Inj) 2 mg Q3H PRN IV PUSH 11/12/16 23:45 (Narcan Inj) 0.4 mg UNSCH PRN IV PUSH 11/12/16 23:30 (Aspirin Chew) 81 mg DAILY CHEW 11/13/16 09:00 11/13/16 09:37 (Lexapro) 20 mg DAILY PO 11/13/16 09:00 11/13/16 09:36 (Toprol Xl) 25 mg BID PO 11/13/16 00:15 11/13/16 22:30 (Protonix) 40 mg DAILY PO 11/13/16 09:00 11/13/16 09:37 (Prinivil) 20 mg DAILY PO 11/13/16 09:00 11/13/16 09:38 (Oscal-D 250-125) 250 mg Q12HR PO 11/13/16 00:30 11/13/16 22:30 ([place] 5-325 Mg) 1 tab Q4H PRN PO 11/13/16 09:30 ([place] 10-325 Mg) 1 tab Q4H PRN PO 11/13/16 09:30 11/14/16 04:04 Reported Meds & Active Scripts Active Reported Aspirin Low Dose (Aspirin) 81 Mg Chew 81 Mg CHEW DAILY Esomeprazole DR 40 Mg Capdr 40 Mg PO DAILY Atelvia (Risedronate) 35 Mg Tabdr 35 Mg PO Q7D Lexapro (Escitalopram Oxalate) 20 Mg Tab 20 Mg PO DAILY Toprol XL (Metoprolol Succinate) 25 Mg Tab 25 Mg PO BID Moexipril (Moexipril HCl) 15 Mg Tab 15 Mg PO DAILY Physical Exam Vital Signs Vital Signs Date Time Temp Pulse Resp B/P (MAP) Pulse Ox O2 Delivery O2 Flow Rate FiO2 11/14/16 04:03 98.0 64 18 122/68 (86) 96 11/14/16 00:36 98.7 60 18 166/78 (107) 96 11/13/16 20:45 98.4 61 18 119/72 (88) 96 11/13/16 18:12 2.00 11/13/16 16:05 98.2 61 16 137/66 (89) 97 11/13/16 12:19 18 11/13/16 11:49 18 11/13/16 11:47 97.5 59 16 131/70 (90) 95 11/13/16 07:48 97.6 62 16 120/57 (78) 97 Result Diagram: 11/13/16 0635 11/13/16 0635 Anusha Yu MD Nov 14, 2016 07:47
[2016-11-14] MEDS ORDERED: XARE10TA PO (07:53)
[2016-11-14 07:56] VITALS: BP 131/73; PULSE 60; RESP 19; TEMP 98.1; O2SAT 97
[2016-11-14] MEDS: SODIUM CHLORIDE 0.9% FLUSH 10 ML FLUSH IV FLUSH SCH (09:00)
[2016-11-14] MEDS ORDERED: oxyCODONE/ACETAMINOPHEN 5 MG/325 MG TAB PO PRN (09:00)
[2016-11-14] MEDS: CALCIUM/VITAMIN D 250 MG/125 U TAB PO SCH (09:06)
[2016-11-14] MEDS: LISINOPRIL 20 MG TAB PO SCH (09:06)
[2016-11-14] MEDS: DOCUSATE SODIUM 50 MG/SENNA 8.6 MG TAB PO SCH (09:06)
[2016-11-14] MEDS: PANTOPRAZOLE SOD 40 MG DELAYED RELEASE TAB PO SCH (09:07)
[2016-11-14] MEDS: ASPIRIN 81 MG CHEW TAB CHEW SCH (09:07)
[2016-11-14] MEDS: ESCITALOPRAM OXALATE 20 MG TAB PO SCH (09:09)
[2016-11-14] MEDS: METOPROLOL SUCCINATE 25 MG EXTENDED RELEASE TAB PO SCH (09:09)
--- NOTE | 2016-11-14 09:42 | HHI.FPPN ---
Subjective Remarks No acute events overnight. Afebrile and vital signs stable overnight. Orthopedic service saw patient and recommended 50% weightbearing. With this information, physical therapy will see the patient today. After physical therapy sees the patient, planning for discharge. Patient is eager to be discharged. He denies any new complaints. He reports feeling well. (Seven Bonds MD R2) Objective Vitals Vital Signs Date Time Temp Pulse Resp B/P (MAP) Pulse Ox O2 Delivery O2 Flow Rate FiO2 11/14/16 07:56 98.1 60 19 131/73 (92) 97 11/14/16 04:03 98.0 64 18 122/68 (86) 96 11/14/16 00:36 98.7 60 18 166/78 (107) 96 11/13/16 20:45 98.4 61 18 119/72 (88) 96 11/13/16 18:12 2.00 11/13/16 16:05 98.2 61 16 137/66 (89) 97 11/13/16 12:19 18 11/13/16 11:49 18 11/13/16 11:47 97.5 59 16 131/70 (90) 95 I/O 11/13/16 11/13/16 11/13/16 11/14/16 11/14/16 11/14/16 07:00 15:00 23:00 07:00 15:00 23:00 Intake Total 680 ml 240 ml 240 ml Balance 680 ml 240 ml 240 ml Intake Oral 480 ml 240 ml 240 ml IV Total 200 ml # Voids 1 1 2 # Bowel Movements 0 0 0 (Seven Bonds MD R2) Result Diagram: 11/13/16 0635 11/13/1635 Imaging Last Impressions Abdomen/Pelvis CT 11/12/162010 Signed Impressions: Service Date/Time: Saturday, November 12, 2016 21:03 - CONCLUSION: 1. Atherosclerosis. 2. Fat-containing umbilical hernia and a right diaphragmatic hernia. 3. Acute sacral fracture, and remote lumbar spine transverse process fractures and rib fractures. Bjorn Kim MD Hip and Pelvis X-Ray 11/12/161856 Signed Impressions: Service Date/Time: Saturday, November 12, 2016 19:32 - CONCLUSION: No acute disease. Bjorn Kim MD Head CT 11/12/161856 Signed Impressions: Service Date/Time: Saturday, November 12, 2016 19:13 - CONCLUSION: No acute disease. Bjorn Kim MD Cervical Spine CT 11/12/161856 Signed Impressions: Service Date/Time: Saturday, November 12, 2016 19:14 - CONCLUSION: 1. Severe degenerative changes and postsurgical changes are noted without evidence for acute fracture or listhesis. Bjorn Kim MD Lower Extremity CT 11/12/16 Signed Impressions: Service Date/Time: Saturday, November 12, 2016 21:03 - CONCLUSION: 1. Left sacral alar fracture. Bjorn Kim MD Chest X-Ray 11/12/16 Signed Impressions: Service Date/Time: Saturday, November 12, 2016 20:20 - CONCLUSION: Basilar atelectasis and the possibility of right sided pneumoperitoneum is difficult to exclude. CT abdomen and pelvis recommended. Bjorn Kim MD Objective Remarks GENERAL: This is a well-nourished, well-developed elderly male patient , in no apparent distress. SKIN: + Ecchymosis and abrasion of scalp. Otherwise, Cool and dry. CARDIOVASCULAR: Regular rate and rhythm without murmurs, gallops, or rubs. RESPIRATORY: Clear to auscultation. Breath sounds equal bilaterally. No wheezes , rales, or rhonchi. MUSCULOSKELETAL: Extremities without clubbing, cyanosis, or edema. NEUROLOGICAL: Awake and alert. (Seven Bonds MD R2) A/P Assessment and Plan Patient is an 81-year-old man with a history of ROSA, HTN, quadruple bypass who presented to the emergency department with a left sacral fracture after falling off his horse. Discharge Planning Plan for discharge today with home physical therapy. (Seven Bonds MD R2) Attending Attestation Pt. examined and case discussed with resident physicians. I have read the above note and agree with the assessment and plan as discussed with me. I was involved in all medical decision making for this patient. Kimo Thornton MD (Kimo Thornton MD) Problem List: (1) Sacral fracture, closed ICD Codes: S32.10XA - Unspecified fracture of sacrum, initial encounter for closed fracture Status: Acute Plan: - Orthopedic surgery consulted to evaluate patient: Left sacral fracture 1. Discussed with the patient his diagnosis and options for treatment. Given his anterior pelvis and right sacrum is intact, his fracture is likely stable and therefore I would recommend non-operative mgmt. I discussed with the patient that we would recommend he mobilize with PT and would recommend PWB 50% to the LLE. 2. Lovenox for DVT ppx or Xarelto 3. Follow-up 2 weeks after discharge with Dr. Yu - Physical therapy consult to evaluate patient: Patient would like to be discharged home with home health PT -Pain control as below: [place] 5/325 one tablet every 4 hours as needed for pain scale 1-5 [place] 10/325 one tablet every 4 hours as needed for pain scale 6-10 Morphine 2 mg as needed for breakthrough pain -Calcium and vitamin D supplementation (2) CAD (coronary artery disease) ICD Codes: I25.10 - Atherosclerotic heart disease of [place] coronary artery without angina pectoris Plan: -Continue home medication of low-dose aspirin Continue home metoprolol (3) Osteoporosis ICD Codes: M81.0 - Age-related osteoporosis without current pathological fracture Plan: -Continue home medication of bisphosphonate -Calcium and vitamin D supplementation (4) HTN (hypertension) ICD Codes: I10 - Essential (primary) hypertension Plan: -Continue medications of metoprolol and ACEi (5) GERD (gastroesophageal reflux disease) ICD Codes: K21.9 - Gastro-esophageal reflux disease without esophagitis Plan: -Continue home medication of PPI (6) ROSA (obstructive sleep apnea) ICD Codes: G47.33 - Obstructive sleep apnea (adult) (pediatric) Plan: -Continue CPAP at night while sleeping (7) Depression ICD Codes: F32.9 - Major depressive disorder, single episode, unspecified Plan: -Continue home medication of Lexapro (8) No contraindication to deep vein thrombosis (DVT) prophylaxis ICD Codes: Z78.9 - Other specified health status Plan: -Lovenox (9) Nutrition, metabolism, and development symptoms ICD Codes: R63.8 - Other symptoms and signs concerning food and fluid intake Plan: Fluids: Not indicated Electrolytes: Monitor Nutrition: Regular diet (Seven Bonds MD R2) Problem Qualifiers (1) Sacral fracture, closed: Qualified Codes: S32.10XA - Unspecified fracture of sacrum, initial encounter for closed fracture Seven Bonds MD R2 Nov 14, 2016 09:42 Kimo Thornton MD Nov 14, 2016 18:20
[2016-11-14 11:31] LABS: AUTOMATED NEUTROPHIL # 3.9 TH/MM3 (1.8-7.7); BASOPHIL # 0.1 TH/MM3 (0-0.2); BASOPHIL % 0.8 % (0.0-2.0); EOSINOPHIL # 0.6 TH/MM3 (0-0.4); EOSINOPHIL % 9.1 % (0.0-4.0); HEMATOCRIT 42.3 % (39.0-51.0); LYMPH % 18.1 % (9.0-44.0); LYMPHOCYTE # 1.2 TH/MM3 (1.0-4.8); MEAN CELL VOLUME 90.5 FL (80.0-100.0); MEAN CORPUSCULAR HGB CONC 33.1 % (32.0-36.0); MONO % 14.2 % (0.0-8.0); NEUT % 57.8 % (16.0-70.0); PLATELET COUNT 105 TH/MM3 (150-450); RED BLOOD COUNT 4.68 MIL/MM3 (4.50-5.90); RED CELL DISTRIBUTION WIDTH 14.8 % (11.6-17.2); WHITE BLOOD COUNT 6.8 TH/MM3 (4.0-11.0)
[2016-11-14 11:41] VITALS: BP 135/71; PULSE 62; RESP 19; TEMP 96.6; O2SAT 96
[2016-11-14 12:37] LABS: HEMO FLAGS AUTO DIFF; PLATELET ESTIMATE SMEAR LOW (NORMAL); PLATELET MORPHOLOGY ENLARGED (NORMAL); SCAN/DIFF AUTO DIFF CONFIRMED
[2016-11-14] MEDS ORDERED: OXYC1TAB63 PO (13:43)
[2016-11-14] MEDS ORDERED: WALKER WHEELS/F1 MIS (13:44)
--- NOTE | 2016-11-14 13:44 | HHI.FF ---
Face to Face Verification Diagnosis: (1) Sacral fracture, closed Physical Therapy Order: Evaluate and Treat, Improve ambulation, Strength and gait training I have seen patient Armen Pan on 11/14/16. My clinical findings support the need for the requested home health care services because: Ltd mobility - disease progression Deconditioned w/ increased weakness High risk of falls I certify that my clinical findings support that this patient is homebound because: Unsteady gait/balance Seven Bonds MD R2 Nov 14, 2016 13:44
[2016-11-20] MEDS ORDERED: RISEDRONATE 35 MG PO SCH (09:00)
== END 2016-11-14 15:19 | disposition home health service (06) | DRG 552 ==
LOC: NEPC 18:45 → NEDA 22:28 → OBSVTOIN 23:19 → N06B 11-13 03:31
PROVIDERS: ADMIT Family Medicine; ATTEND Family Medicine
DX: S32.120A Nondisplaced Zone II fracture of sacrum, initial encounter for closed fracture (principal); S09.90XA Unspecified injury of head, initial encounter; F32.9 Major depressive disorder, single episode, unspecified; S00.01XA Abrasion of scalp, initial encounter; V80.010A Animal-rider injured by fall from or being thrown from horse in noncollision accident, initial encounter; Y93.52 Activity, horseback riding; Y92.9 Unspecified place or not applicable; I25.10 Atherosclerotic heart disease of native coronary artery without angina pectoris; M19.90 Unspecified osteoarthritis, unspecified site; Z96.651 Presence of right artificial knee joint; R42 Dizziness and giddiness; R11.0 Nausea; G47.33 Obstructive sleep apnea (adult) (pediatric); I10 Essential (primary) hypertension; M81.0 Age-related osteoporosis without current pathological fracture; K21.9 Gastro-esophageal reflux disease without esophagitis
CPT/HCPCS: 70450; 71010; 72125; 73502; 73700; 74177; 80048; 80053; 85025; 85610; 85730; 94150; 96374; 96375; J0131; J1650; J2270; J2405; Q9967

== ENCOUNTER 2017-01-19 12:52 | Day surgery (SDC) | payer MEDICARE, BC ==
[~2017-01-19 12:52] MED LIST changes: -ASPI1TAB69 PO; +ASPI81CH6 CHEW; +OXYC1TAB63 PO; +WALKER WHEELS/F1 MIS; +XARE10TA PO
[2017-01-19 13:10] VITALS: BP 91/56; PULSE 69; RESP 20; TEMP 97.6; O2SAT 98
[2017-01-19] MEDS ORDERED: LIPI20TA PO (13:11)
[2017-01-19] MEDS ORDERED: AMLO2.5T PO (13:11)
[2017-01-19] MEDS ORDERED: TRIAMCINOLONE ACETONIDE 40 MG/ML VIAL ONE (14:44)
[2017-01-19] MEDS ORDERED: SODIUM CHLORIDE 0.9% INJ 10 ML ONE (14:45)
[2017-01-19] MEDS ORDERED: SODIUM BICARBONATE 8.4% INJ 50 ML ONE (15:05)
--- NOTE | 2017-01-19 15:22 | PD.RAD ---
Post Procedure Progress Note Pre Procedure Diagnosis: (1) Low back pain potentially associated with spinal stenosis Post Procedure Diagnosis: (1) Low back pain potentially associated with spinal stenosis Procedure Date: Jan 19, 2017 Supervising Radiologist: Galileo Linares Estimated blood loss: none Anesthesia: Local Plan of Activity Patient to Unit: ROPU Patient Condition: Good Additional Comments: 81y/o with known spinal stenosis and history of multiple prior epidural steroid injections. MRI was reviewed prior to procedure. Epidural steroid injection preformed with a single 25 ga needle at L3/L4. Good spread of steroid in the epidural space. Pt tolerated the procedure well. See PACS Report for procedural detail/treatment Galileo Linares MD Jan 19, 2017 15:22
[2017-01-19 15:25] VITALS: BP 157/81; PULSE 65; RESP 18; TEMP 98; O2SAT 94
--- NOTE | 2017-01-19 15:54 | RADRPT ---
EXAM DATE/TIME: 01/19/2017 15:52 [facility] COMPARISON: No previous studies available for comparison. INDICATIONS : Patient presents with spinal stenosis and in need of epidural injection for pain management. MEDICAL HISTORY : ROSA HTN CAD Depression SURGICAL HISTORY : Quadruple Bypass Back and Neck surgery Knee replacement Cholecystectomy Prostate surgery penile implant thumb re-attached chest tube for hemothorax ENCOUNTER: Initial ACUITY: >1 year PAIN SCORE: 0/10 FLUORO TIME: 4.1 minutes IMAGE SERIES: 3 CONTRAST: 20 cc Omnipaque (iohexol) 300 ACCESS LEVEL: Right L3 RESPONSE: Pre procedure pain level was 0/10. Post procedure pain level was 0/10. PROCEDURE : 1. Fluoroscopically guided epidural injection. The patient is an 81-year-old with history of low back pain and having had previous epidural steroid administration the lumbar spine to which he responded well. The patient's MRI imaging was reviewed pr ior to the procedure. The patient was evaluated. The risks, benefits and alternatives to the procedure were explained and verbal and written consent w as obtained. The site was prepped in sterile fashion. Full sterile technique was used, including ca p, mask, sterile gloves and gown and a large sterile sheet. Hand hygiene and 2% chlorhexidine and/or betadine/alcohol prep was utilized per protocol for cutaneous antisepsis. The skin and subcutaneous tissues were infiltrated with local anesthetic solution. With fluoroscopic guidance the targeted epidural space was localized and positive contrast was inject ed to confirm epidural spread. Following this the prescribed medication was injected surrounding the space. The patient's preprocedure pain and post procedure pain levels were recorded. CONCLUSION: Uncomplicated fluoroscopically guided epidural injection as above. Galileo Linares MD on January 19, 2017 at 15:51 Board Certified Radiologist. This report was verified electronically.
== END 2017-01-19 15:43 | disposition home or self-care (01) ==
LOC: HRIP 12:52 → HROP 12:52
PROVIDERS: ATTEND Orthopaedic Surgery Orthopaedic Surgery of the Spine
DX: M48.061 Spinal stenosis, lumbar region without neurogenic claudication (principal); I10 Essential (primary) hypertension; I25.10 Atherosclerotic heart disease of native coronary artery without angina pectoris; F32.9 Major depressive disorder, single episode, unspecified; G47.33 Obstructive sleep apnea (adult) (pediatric)
CPT/HCPCS: 62323; J3301